=== PATIENT | male | born 1980 | race Caucasian/White ===

== ENCOUNTER 2018-12-07 07:27 | Outpatient (CLI) | payer OTHER ==
--- NOTE | 2018-12-08 10:25 | PFT ---
PATIENT HISTORY: HEIGHT:70 IN WEIGHT: 189 SMOKER: NO HOW LON YRS PACKS PER DAY .50 PRODUCTIVE COUGH: NO LUNG DISEASE: PHYSICIAN INTERPRETATION FINAL REPORT: Patient had good effort and good cooperation. FVC 4.68 (90%), FEV1 3.85 (92%), FEV1/FVC 0.82. RV 1.65 (88%), TLC 6.15 (87%) DIFFUSION 25.91 (73%) The FEV1 and FVC fall within the normal limits. The ratio is normal, suggesting no evidence of obstructive air flow limitation. There is no significant improvement following the administration of a bronchodilator. The Residual Volume and Total Lung Capacity fall with in the normal limits. The diffusion capacity is just below the lower limits of normal. This corrects into the normal range when accounting for alveolar ventilation. IMPRESSION: Overall, these pulmonary function studies are consistent with normal spirometry and lung volumes with an isolated reduced diffusion capacity. Pulmonary vascular disorders, or very early interstitial lung processes should be considered. Clinical and radiographic correlation may help to interpret these data. I have no priors for comparison. Call Center Professional: NAUN Foundry Operator: NAUN WYNN
== END 2018-12-07 07:28 | disposition home or self-care (01) ==
LOC: CP 07:27
PROVIDERS: ATTEND Internal Medicine Critical Care Medicine
DX: R06.09 Other forms of dyspnea (principal); R94.2 Abnormal results of pulmonary function studies
CPT/HCPCS: 94060; 94727; 94729